=== PATIENT | female | born 1955 | race Caucasian/White ===

== ENCOUNTER 2024-04-16 14:05 | Emergency (ER) | payer MEDICARE, OTHER ==
[~2024-04-16] VITALS: Ht 167.6 cm; Wt 84.1 kg
[2024-04-16 14:09] VITALS: TEMP 98.1
[2024-04-16] MEDS ORDERED: NORCO 325 MG-51 TAB PO (15:27)
[2024-04-16] MEDS ORDERED: Home HYDROcodone/Acetaminophen 5/325 MG #4 TABS/PACK PO ONE (15:30)
[2024-04-16 15:43] VITALS: BP 124/82; PULSE 78
== END 2024-04-16 15:48 | disposition home or self-care (01) ==
LOC: COL.ER 14:05
DX: S49.91XA Unspecified injury of right shoulder and upper arm, initial encounter (principal); W01.0XXA Fall on same level from slipping, tripping and stumbling without subsequent striking against object, initial encounter